=== PATIENT | female | born 1950 | race Native Hawaiian/Other Pacific Islander ===

== ENCOUNTER 2017-12-18 10:10 | Inpatient (IN) | payer OTHER ==
[~2017-12-18] VITALS: Ht 152.4 cm; Wt 54.0 kg
[2017-12-18] MEDS ORDERED: [UNRECOGNIZED DRUG - REMARK] (10:18)
[2017-12-18] MEDS ORDERED: UNK B/P MED (10:18)
[2017-12-18] MEDS ORDERED: diphenhydrAMINE 50 MG/1 ML VIAL ONE ×2 (10:41→12:49)
[2017-12-18] MEDS ORDERED: HYDROMORPHONE 2 MG/1 ML DISP.SYRIN ONE (10:42)
[2017-12-18] MEDS ORDERED: HYDROMORPHONE 1 MG/1 ML DISP.SYRIN IM ONE (10:45)
[2017-12-18] MEDS ORDERED: diphenhydrAMINE 50 MG/1 ML VIAL IM ONE (10:45)
[2017-12-18] MEDS ORDERED: ONDANSETRON ODT 4 MG TAB.RAPDIS ONE (11:21)
[2017-12-18] MEDS ORDERED: ONDANSETRON ODT 4 MG TAB.RAPDIS SL ONE (11:30)
--- NOTE | 2017-12-18 11:38 | NUR ---
PT TO CT. DELAY TO CT DUE TO PT WANTED TO VOID FIRST, BECAME NAUSEATED LATER AND HAD TO BE MEDICATED. Addendum: 12/18/17 at 1230 by YAN BEDPAN PROVIDED FOR PT WITH PRECAUTION
[2017-12-18] MEDS ORDERED: METOCLOPRAMIDE HCL 10 MG/2 ML VIAL IV ONE (12:00)
[2017-12-18] MEDS ORDERED: METOCLOPRAMIDE HCL 10 MG/2 ML VIAL ONE (12:05)
[2017-12-18 12:20] LABS: BASOPHILS % (AUTO) 0.4 % (0.0-2.0); EOSINOPHILS # (AUTO) 0.1 K/uL (0.0-0.7); EOSINOPHILS % (AUTO) 0.8 % (0.0-7.0); HEMATOCRIT 36.9 % (31.2-41.9); LYMPHOCYTES # (AUTO) 1.8 K/uL (20.0-40.0); MEAN CORPUSCULAR HEMOGLOBIN 32.1 uug (24.7-32.8); MEAN CORPUSCULAR HGB CONC 35 g/dL (32.3-35.6); MEAN CORPUSCULAR VOLUME 91.1 fL (75.5-95.3); MONOCYTES # (AUTO) 0.7 K/uL (2.0-10.0); MONOCYTES % (AUTO) 6.9 % (0.0-11.0); NEUTROPHILS % (AUTO) 72.9 % (38.5-71.5); PLATELET COUNT (AUTO) 186 K/uL (179-408); RED BLOOD CELL COUNT(AUTO) 4.06 MIL/uL (3.63-4.92); WHITE BLOOD COUNT (AUTO) 9.6 K/uL (3.8-11.8)
[2017-12-18 12:27] LABS: CREATININE 0.7 mg/dL (0.6-1.3); POTASSIUM 3.6 mmol/L (3.5-5.1)
[2017-12-18 12:33] LABS: BILIRUBIN,DIRECT 0.1 mg/dL (0.0-0.2); BILIRUBIN,TOTAL 0.7 mg/dL (0.2-1.0); TOTAL PROTEIN, SERUM 7.2 g/dL (6.4-8.2)
[2017-12-18] MEDS ORDERED: PROCHLORPERAZINE EDISYLATE 10 MG/2 ML VIAL IV ONE (12:45)
[2017-12-18] MEDS ORDERED: diphenhydrAMINE 50 MG/1 ML VIAL IV ONE (12:45)
[2017-12-18] MEDS ORDERED: PROCHLORPERAZINE EDISYLATE 10 MG/2 ML VIAL ONE (12:49)
--- NOTE | 2017-12-18 13:00 | NUR ---
PT TRANSFERED TO FLOOR IN STABLE CONDITION.
[2017-12-18 13:15] VITALS: BP 146/74
--- NOTE | 2017-12-18 13:15 | NUR ---
PATIENT TRANSFERRED INTO MS/TELE UNIT IN STABLE CONDITION. VITAL SIGNS STABLE. TELEMETRY PLACED, SHOWING SINUS RHYTHM. EXTREMELY DROWSY, COMPLAINING OF 10/10 PAIN WITH MOVEMENT IN LOWER BACK. BELONGINGS CHECKLIST CHECKED/SIGNED. BED IN LOCKED/LOW POSITION, SIDE RAILS UP X2, BED ALARM ON, CALL LIGHT WITHIN REACH OF PATIENT.
[2017-12-18 13:53] LABS: *BILIRUBIN,URIN NEGATIVE (NEGATIVE); *BLOOD, URINE Trace-lysed (NEGATIVE); *CLARITY,URINE CLEAR (CLEAR); *COLOR,URINE YELLOW (YELLOW); *KETONES,URINE NEGATIVE (NEGATIVE); *PROTEIN,URINE NEGATIVE (NEGATIVE); *UROBILINOGEN,URINE 0.2 E.U./dl (NORMAL); LEUKOCYTE ESTERASE ,URINE NEGATIVE (NEGATIVE); NITRITE, URINE NEGATIVE (NEGATIVE); UGLUCOSE NEGATIVE (NEGATIVE)
[2017-12-18 14:00] LABS: BACTERIA,URINE FEW /HPF (NONE SEEN); RBC,URINE 0-3 /HPF (0-3); SQUAMOUS EPITHELIAL CELL,UR FEW /HPF (NONE SEEN); WBC,URINE 0-3 /HPF (0-3)
[2017-12-18] MEDS ORDERED: ZOLPIDEM 5 MG TABLET PO PRN (14:30)
[2017-12-18] MEDS ORDERED: MAGNESIUM HYDROXIDE 30 ML LIQUID UDC PO PRN (14:30)
[2017-12-18] MEDS ORDERED: Z GUARD REMEDY PASTE 57 GM TUBE TOP PRN (14:30)
[2017-12-18] MEDS ORDERED: ACETAMINOPHEN 325 MG TABLET PO PRN (14:30)
[2017-12-18] MEDS ORDERED: MORPHINE SULFATE 2 MG/1 ML DISP.SYRIN IV PRN (14:30)
[2017-12-18] MEDS ORDERED: HYDROCODONE/APAP 5-325MG TABLET PO PRN (14:30)
[2017-12-18] MEDS ORDERED: ONDANSETRON 4 MG/2 ML VIAL IV PRN (14:30)
[2017-12-18] MEDS ORDERED: MORPHINE SULFATE 4 MG/1 ML DISP.SYRIN IV PRN (14:45)
--- NOTE | 2017-12-18 15:00 | NUR ---
CALLIE BRACED ORDERED.
[2017-12-18 15:55] VITALS: BP 149/68
--- NOTE | 2017-12-18 17:30 | NUR ---
TLSO BRACE ARRIVED AND AT PATIENT'S BEDSIDE. AWAITING PHYSICAL THERAPY TO FIT PATIENT WITH TLSO BRACE.
--- NOTE | 2017-12-18 18:33 | NUR ---
PATIENT COMPLAINED OF PAIN IN LOWER BACK WHERE FRACTURE IS LOCATED 5/10 PAIN. TYLENOL 650 MG PO ADMINISTERED. STABLE CONDITION AT THIS TIME. VITAL SIGNS STABLE. TELEMETRY SHOWS SINUS RHYTHM. NO S/S OF DISTRESS. CALL LIGHT WITHIN REACH. BED ALARM ON, CALL LIGHT WITHIN REACH.
--- NOTE | 2017-12-18 19:20 | NUR ---
Received pt lying in bed. AAOX4. Family at bedside. Pain on back tolerabel at this time per patient. In no acute distress. O2 at 2lpm via nc in place. O2 sat at 98%. IV site on right hand intact and patent. Sinus stephanie on tele at 53/min. In no acute distress. Safety measure initiated and call kent within reach.
[2017-12-18 19:30] VITALS: BP 110/71
[2017-12-18 23:39] VITALS: BP 141/72
[2017-12-19] MEDS: KETOROLAC TROMETHAMINE 15 MG INJ IVP PRN ×2 (01:40→10:09)
[2017-12-19 03:42] VITALS: BP 126/62
--- NOTE | 2017-12-19 06:05 | NUR ---
AAOX4. Pain on back and neck area manage with Toradol. On O2 at 2lpm via nc. O2 sat at 97%. IV site on right hand intact and patent. NSR on tele at 70/min. In no acute distress. Needs attended to and met. Safety measure maintained and call kent within reach.
[2017-12-19 06:37] LABS: BASOPHILS % (AUTO) 0.4 % (0.0-2.0); EOSINOPHILS # (AUTO) 0.1 K/uL (0.0-0.7); EOSINOPHILS % (AUTO) 0.7 % (0.0-7.0); HEMATOCRIT 35.7 % (31.2-41.9); HEMOGLOBIN 12.7 g/dL (10.9-14.3); LYMPHOCYTES # (AUTO) 1.3 K/uL (20.0-40.0); LYMPHOCYTES % (AUTO) 14.7 % (20.5-51.5); MEAN CORPUSCULAR HEMOGLOBIN 32.4 uug (24.7-32.8); MEAN CORPUSCULAR HGB CONC 36 g/dL (32.3-35.6); MEAN CORPUSCULAR VOLUME 90.7 fL (75.5-95.3); MONOCYTES # (AUTO) 0.5 K/uL (2.0-10.0); MONOCYTES % (AUTO) 5.6 % (0.0-11.0); NEUTROPHILS # (AUTO) 6.8 K/uL (1.8-8.9); NEUTROPHILS % (AUTO) 78.6 % (38.5-71.5); PLATELET COUNT (AUTO) 185 K/uL (179-408); RED BLOOD CELL COUNT(AUTO) 3.93 MIL/uL (3.63-4.92); WHITE BLOOD COUNT (AUTO) 8.7 K/uL (3.8-11.8)
[2017-12-19 06:46] LABS: CREATININE 0.7 mg/dL (0.6-1.3); PHOSPHOROUS 3.6 mg/dL (2.5-4.9); POTASSIUM 3.6 mmol/L (3.5-5.1)
--- NOTE | 2017-12-19 07:30 | NUR ---
Received pt sleeping in a supine position, no immediate s/s of SOB, pain, distress and discomfort. No hydration running at this time. Bed at lowest position for safety and call light within reach
[2017-12-19] MEDS: DEXAMETHASONE SOD PHOSPHATE 10 MG INJ IV SCH ×2 (11:57→13:26)
[2017-12-19 12:20] VITALS: BP 143/75
[2017-12-19] MEDS ORDERED: METH4TAB3 PO (12:30)
[2017-12-19] MEDS ORDERED: IBUP-1953 PO (12:30)
--- NOTE | 2017-12-19 12:36 | NUR ---
Son states he is a physical therapist and will place the back brace on his mother and walk. Noted that the son placed the pt on the chair and also ambulated her. RADAR ENGINEER aware
--- NOTE | 2017-12-19 13:00 | NUR ---
T.O. for Ibuprofen and Medrol pack from [facility] to pt's preferred pharmacy, noted and carried out
--- NOTE | 2017-12-19 13:40 | NUR ---
Pt was discharged with orders. Personal list and discharge paper signed after reviewing and explaining them. Son by bedside. IV line and ID band removed. Pt was guided down to lobby via wheelchair accompanied by ATOMIC WELDER, son and . Pharmacy was called to review medication. Pt stated she would follow up with primary doctor for further medical evaluation
== END 2017-12-19 13:45 | disposition home or self-care (01) | DRG 552 ==
LOC: ER 10:10 → TELE 12:42 → MEDSURG1 15:27 → TELE-TD 15:30 → TELE 15:30 → MED 12-19 11:07
PROVIDERS: ADMIT Nurse Practitioner Acute Care; ATTEND Nurse Practitioner Acute Care
DX: S32.028A Other fracture of second lumbar vertebra, initial encounter for closed fracture (principal); W18.30XA Fall on same level, unspecified, initial encounter; Y93.89 Activity, other specified; Y92.513 Shop (commercial) as the place of occurrence of the external cause; M51.26 Other intervertebral disc displacement, lumbar region; M51.27 Other intervertebral disc displacement, lumbosacral region; E03.9 Hypothyroidism, unspecified; M81.0 Age-related osteoporosis without current pathological fracture; I70.0 Atherosclerosis of aorta; I11.9 Hypertensive heart disease without heart failure
CPT/HCPCS: 36415; 70030-TC; 71045; 72131; 72192; 83735; 84100; 85025; 85730; 93005; A4663; J0780; J1100; J1170; J1200; J1885; J2765; Q0162